=== PATIENT | male | born 1945 | race Caucasian/White ===

== ENCOUNTER 2018-06-12 12:21 | Observation (INO) ==
[2018-06-12] MEDS ORDERED: ENOXAPARIN 100 MG/ML SYRINGE SUBCUT STA (12:53)
[2018-06-12 13:16] LABS: Basophils % 0.6 % (0.0-0.8); Eosinophils # 0.2 10*3/uL (0.0-0.87); Eosinophils % 2.5 % (0.00-10.9); Hematocrit 39.1 VOL% (42.0-52.0); Hemoglobin 12.7 GM/DL (14.0-18.0); Immature Granulocytes % 0.3 %; Immature Granulocytes Absolute 0.02 #; Lymphocytes # 3.2 10*3/uL (1.4-4.0); Lymphocytes % 43.9 % (21.2-54.2); Mean Corpuscular HGB Conc 32.5 GM/DL (32-36); Mean Corpuscular Hemoglobin 25 PG (27-34); Mean Corpuscular Volume 76.2 FL (87-102); Mean Platelet Volume 10.7 FL (9.6-12.0); Monocytes # 0.7 10*3/uL (0.11-0.8); Monocytes % 9.3 % (1.7-12.7); Neutrophils # 3.1 10*3/uL (1.4-7.4); Neutrophils % 43.4 % (38.7-73.9); Platelet Count 213 T/CUMM (130-400); Red Blood Count 5.13 MC/CUMM (3.8-5.5); Red Cell Distribution Width 15.2 % (9.3-17.3); White Blood Count 7.2 T/CUMM (4-12)
[2018-06-12 13:48] LABS: Alanine Aminotransferase 29 U/L (16-61); Albumin 3.8 G/DL (3.4-5.0); Alkaline Phosphatase 49 U/L (45-117); Aspartate Amino Transferase 19 U/L (0-37); Bilirubin,Total < 0.39 MG/DL (0.2-1.0); Blood Urea Nitrogen 12 MG/DL (7-18); Calcium 8.6 MG/DL (8.5-10.1); Glucose 89 MG/DL (74-106); Osmolality,Calculated 279.3 MOS/KG (273-304); Potassium 3.7 MMOL/L (3.5-5.1); Sodium 141 MMOL/L (136-145); Total Protein 7.5 G/DL (6.4-8.3)
[2018-06-12] MEDS ORDERED: ONDANSETRON 4 MG/2 ML VIAL IV PRN (15:21)
[2018-06-12] MEDS ORDERED: ACETAMINOPHEN 325 MG TABLET PO PRN (15:21)
[2018-06-12] MEDS ORDERED: ZALEPLON 5 MG CAPSULE PO PRN (15:21)
[2018-06-12] MEDS ORDERED: MAGNESIUM SULF RIDER 4 GM in PREMIX 1 EACH IV PRN (15:21)
[2018-06-12] MEDS ORDERED: DOCUSATE SODIUM 100 MG CAPSULE PO PRN (15:21)
[2018-06-12] MEDS ORDERED: MAGNESIUM SULF RIDER 2 GM in PREMIX 1 EACH IV PRN (15:21)
[2018-06-12] MEDS ORDERED: NITROGLYCERIN SL 0.4 MG TABLET SL PRN (16:24)
[2018-06-12] MEDS ORDERED: DICLOFENAC 1% GEL 100 GM TUBE TOP PRN (16:32)
[2018-06-12 17:33] LABS: Troponin I < 0.015 NG/ML (0.00-0.045)
[2018-06-12] MEDS: ASPIRIN 325 MG TABLET PO SCH (17:38)
[2018-06-12] MEDS: PANTOPRAZOLE 40 MG TABLET PO SCH (22:26)
[2018-06-12] MEDS: TAMSULOSIN 0.4 MG CAPSULE PO SCH (22:28)
[2018-06-12] MEDS: GABAPENTIN 100 MG CAPSULE PO SCH (22:28)
[2018-06-12] MEDS: ACETAMINOPHEN 325 MG TABLET PO SCH (22:28)
[2018-06-12] MEDS: HYOSCYAMINE 0.125 MG TABLET SL SCH (22:29)
[2018-06-13 00:34] LABS: Basophils # 0.1 10*3/uL (0.0-0.2); Basophils % 0.6 % (0.0-0.8); Eosinophils # 0.3 10*3/uL (0.0-0.87); Eosinophils % 3.7 % (0.00-10.9); Hematocrit 38.5 VOL% (42.0-52.0); Hemoglobin 12.7 GM/DL (14.0-18.0); Immature Granulocytes % 0.1 %; Immature Granulocytes Absolute 0.01 #; Lymphocytes # 3.4 10*3/uL (1.4-4.0); Lymphocytes % 43.6 % (21.2-54.2); Mean Corpuscular Hemoglobin 25 PG (27-34); Mean Corpuscular Volume 76.7 FL (87-102); Monocytes # 0.7 10*3/uL (0.11-0.8); Monocytes % 8.3 % (1.7-12.7); Neutrophils # 3.4 10*3/uL (1.4-7.4); Neutrophils % 43.7 % (38.7-73.9); Platelet Count 238 T/CUMM (130-400); Red Blood Count 5.02 MC/CUMM (3.8-5.5); Red Cell Distribution Width 15.3 % (9.3-17.3); White Blood Count 7.8 T/CUMM (4-12)
[2018-06-13 00:58] LABS: Troponin I < 0.015 NG/ML (0.00-0.045)
[2018-06-13 00:59] LABS: Calcium 8.4 MG/DL (8.5-10.1); Osmolality,Calculated 286.1 MOS/KG (273-304); Potassium 3.3 MMOL/L (3.5-5.1); Risk Ratio 2.33; VLDL CHOLESTEROL 49.4 MG/DL
[2018-06-13] MEDS: POTASSIUM CHLORIDE 20 MEQ TABLET PO PRN ×3 (07:05→10:49)
[2018-06-13 08:05] VITALS: BP 109/51
[2018-06-13] MEDS: HYOSCYAMINE 0.125 MG TABLET SL SCH (08:46)
[2018-06-13] MEDS: ASPIRIN 325 MG TABLET PO SCH (08:46)
[2018-06-13] MEDS: GABAPENTIN 100 MG CAPSULE PO SCH (08:47)
[2018-06-13] MEDS: PANTOPRAZOLE 40 MG TABLET PO SCH (08:47)
[2018-06-13] MEDS: TAMSULOSIN 0.4 MG CAPSULE PO SCH (08:47)
[2018-06-13] MEDS: ACETAMINOPHEN 325 MG TABLET PO SCH (08:47)
[2018-06-13] MEDS ORDERED: PANTOPRAZOLE 40 MG TABLET PO SCH (09:00)
[2018-06-13] MEDS ORDERED: LORATADINE 10 MG TABLET PO SCH (09:00)
[2018-06-13] MEDS ORDERED: hydroCHLOROthiazide 12.5 MG CAPSULE PO SCH (09:00)
[2018-06-13] MEDS ORDERED: SERTRALINE 100 MG TABLET PO SCH (09:00)
[2018-06-13] MEDS ORDERED: PRAMIPEXOLE 0.25 MG TABLET PO SCH (09:00)
[2018-06-13] MEDS ORDERED: ATENOLOL 25 MG TABLET PO SCH (09:00)
[2018-06-13] MEDS ORDERED: EZETIMIBE 10 MG TABLET PO SCH (09:00)
[2018-06-13] MEDS ORDERED: SIMVASTATIN 80 MG TABLET PO SCH (09:00)
== END 2018-06-13 11:05 | disposition home or self-care (01) ==
LOC: N.EDINP 12:21 → N.ED 12:21 → N.TELEN 16:32
PROVIDERS: ADMIT Internal Medicine Cardiovascular Disease; ATTEND Internal Medicine Cardiovascular Disease